=== PATIENT | female | born 1990 ===

== ENCOUNTER 2016-12-23 16:38 | Emergency (ER) | payer MEDICAID ==
[2016-12-23 16:50] VITALS: BP 125/72; PULSE 84; RESP 16; TEMP 98.2; O2SAT 100
--- NOTE | 2016-12-23 17:15 | ED PDOC ---
HPI: Chest Pain Time Seen by Provider: 12/23/16 17:04 Chief Complaint (Nursing): Chest Pain Chief Complaint (Provider): chest pain History Per: Patient Additional Complaint(s): 26-year-old female presents to emergency department with generalized chest and abdominal pain that started 3 days ago. Patient has mild nausea and is not sure if she is . She has slight shortness of breath as well that comes and goes. Patient denies any vaginal bleeding. No associated fever or chills, no coughing. Past Medical History Reviewed: Historical Data, Nursing Documentation, Vital Signs Vital Signs: Last Vital Signs Temp 98.2 F 12/23/16 16:45 Pulse 84 12/23/16 16:45 Resp 16 12/23/16 16:45 BP 125/72 12/23/16 16:45 Pulse Ox 100 12/23/16 19:21 - Medical History PMH: Anemia, Asthma, Gastritis - Surgical History Surgical History: Cholecystectomy, (x2) Other surgeries: gastric bypass, abdominoplasty - Family History Family History: States: No Known Family Hx - Living Arrangements Living Arrangements: With Family - Social History Current smoker - smoking cessation education provided: No Alcohol: None Drugs: Denies - Home Medications Home Medications: Ambulatory Orders Medication Instructions Recorded Doxycycline Hyclate [Doxycycline] 1 tab PO BID #14 tab 06/04/15 Ondansetron [Zofran] 4 mg PO Q6H PRN #10 tab 06/30/15 Ranitidine HCl [Zantac 150] 150 mg PO BID #20 tab 06/30/15 Ondansetron ODT [Zofran ODT] 1 odt PO Q6 PRN #30 odt 09/16/15 Sucralfate [Carafate] 1 gm PO QID PRN #30 tablet 09/16/15 Famotidine [Pepcid] 1 tab PO BID #10 tab 10/08/15 Ondansetron [Zofran] 4 mg PO Q8H PRN #10 tab 10/08/15 Comb No.42/Folic Acid 1 tab PO DAILY #60 tab 12/23/16 [Prena1 Chew] - Allergies Allergies/Adverse Reactions: Allergies Allergy/AdvReac Type Severity Reaction Status Date / Time No Known Allergies Allergy Verified 10/08/15 12:21 BIENVENIDO Risk Score for UA/NSTEMI - BIENVENIDO Risk Score Age > 64: NO 3 or more CAD Risk Factors: NO Known CAD (Stenosis greater than 50%): NO Aspirin use in past 7 days: NO Severe Angina: NO EKG ST changes greater than 0.5mm: NO Positive Cardiac Marker: NO BIENVENIDO Score: 0 Risk %: 5% Curb-65 Severity Score - CURB-65 Severity Score Confusion: No Respiratory Rate greater than/equal to 30: No Systolic BP <90 or Diastolic BP less than/equal 60mmHg: No Age >64: No Curb-65 Score: 0 Percentage 30-day mortality: 0.6% Wells Criteria for PE - Wells Criteria for Pulmonary Embolism Clinical Signs and Symptoms of DVT: No P.E is #1 Diagnosis, or Equally Likely: No Heart Rate >100: No Immobilization at least 3 days;Surgery previous 4 weeks: No Previous, objectively diagnosed PE or DVT: No Hemoptysis: No Malignancy w/treatment within 6 months, or palliative: No Total Score: 0 Review of Systems ROS Statement: Except As Marked, All Systems Reviewed And Found Negative Constitutional: Negative for: Fever Cardiovascular: Positive for: Chest Pain Respiratory: Positive for: Shortness of Breath (intermittent) Gastrointestinal: Positive for: Nausea, Abdominal Pain. Negative for: Vomiting Genitourinary Female: Positive for: Pelvic Pain. Negative for: Dysuria, Vaginal Discharge, Vaginal Bleeding Neurological: Negative for: Headache, Dizziness Physical Exam - Reviewed Nursing Documentation Reviewed: Yes Vital Signs Reviewed: Yes - Physical Exam Appears: Positive for: Well, Non-toxic, No Acute Distress Skin: Negative for: Rash Eye Exam: Positive for: Normal appearance Cardiovascular/Chest: Positive for: Regular Rate, Rhythm Respiratory: Positive for: Normal Breath Sounds. Negative for: Accessory Muscle Use, Wheezing, Respiratory Distress Gastrointestinal/Abdominal: Positive for: Soft. Negative for: Tenderness, Distended, Guarding, Rebound Back: Negative for: L CVA Tenderness, R CVA Tenderness Extremity: Positive for: Normal ROM Neurologic/Psych: Positive for: Alert, Oriented - Laboratory Results Result Diagrams: 12/23/16 18:00 12/23/16 18:00 Urine POC: Positive Urine dip results: Positive for: Leukocyte Esterase (trace) - ECG O2 Sat by Pulse Oximetry: 100 Pulse Ox Interpretation: Normal - Other Rad OB TV US X-Ray: Read By Radiologist X-Ray Interpretation: see below Medical Decision Making Medical Decision Makin26 year old with chest pain and abdominal pain Plan: test - result is positive UA, culture CBC CMP Trop Beta quant OB US PO tylenol IVF US: Findings: The uterus measures approximately 9.8 x 4.7 x 5.7 cm. Anteverted. Cervix length measures approximately 3.8 cm. There is a single intrauterine fetus present. 2 mm yolk sac. The gestational sac measures 2.7 cm and is compatible with a gestational age of 7 weeks 3 days. The crown-rump length measures 0.8 cm and is compatible with a gestational age of 6 weeks 5 days. There is heart motion which measured 121.5 BPM. The right ovary measures 3.5 x 1.8 x 3.5 cm. The left ovary measures 4.1 x 2.3 x 3.7 cm. 1.4 x 1.0 x 1.3 cm probable corpus luteal cyst. Blood flow was demonstrated to both ovaries. Impression: Live single intrauterine with estimated gestational age 7 weeks 3 days by gestational sac calculation and 6 weeks 5 days by crown-rump length calculation. heart rate 121.5 bpm. 1.4 cm probable left corpus luteal cyst. Advise an anomaly screen at 16-18 weeks gestational age. Patient is aware of all diagnostic testing results. She states that chest pain or shortness of breath have resolved completely. Patient was given prescription for vitamins. She was referred to women's clinic for follow-up and she is aware she can return to ED if acutely worse in any time. Disposition - Clinical Impression Clinical Impression: - Patient ED Disposition Is Patient to be Admitted: No Counseled Patient/Family Regarding: Studies Performed, Diagnosis, Need For Followup - Disposition Referrals: [facility] [Outside] Disposition: Routine/Home Disposition Time: 19:08 Condition: STABLE Additional Instructions: Rest as much as possible and drink plenty of fluids. Start taking vitamins. Follow up as soon as possible with [facility]. Prescriptions: Comb No.42/Folic Acid [Prena1 Chew] 1 tab PO DAILY #60 tab Instructions: (ED) Forms: [employer] (E[place]ian) Results - Lab Results Lab Results: 12/23/16 12/23/16 12/23/16 18:00 18:00 17:35 WBC 13.3 H RBC 4.11 Hgb 10.1 L Hct 32.2 L MCV 78.3 L D MCH 24.5 L MCHC 31.3 L RDW 17.1 H Plt Count 346 MPV 8.4 Neut % (Auto) 68.0 Lymph % (Auto) 22.5 [place] % (Auto) 7.4 Eos % (Auto) 1.4 Baso % (Auto) 0.7 Neut # 9.0 H Lymph # 3.0 [place] # 1.0 H Eos # 0.2 Baso # 0.1 Sodium 137 Potassium 4.5 Chloride 106 Carbon Dioxide 23 Anion Gap 13 BUN 15 Creatinine 0.8 Est GFR ( Amer) > 60 Est GFR (Non-Af Amer) > 60 Random Glucose 80 Calcium 9.1 Troponin I < 0.0120 Beta HCG, Quant 63246.00 Urine Color Yellow Urine Clarity Slighty-cloudy Urine pH 6.0 Ur Specific Ralph 1.019 Urine Protein Negative Urine Glucose (UA) Neg Urine Ketones Negative Urine Blood Negative Urine Nitrate Negative Urine Bilirubin Negative Urine Urobilinogen 0.2-1.0 Ur Leukocyte Esterase Trace Urine Microscopic WBC 1 Ur Squamous Epith Cells 5
[2016-12-23] MEDS ORDERED: Sodium Chloride 0.9% 1,000 ML IV STA (17:33)
[2016-12-23 18:16] LABS: BASO # 0.1 K/uL (0.0-0.2); BASO % 0.7 % (0.0-2.0); EOS # 0.2 K/uL (0.0-0.7); EOS % 1.4 % (0.0-4.0); HEMOGLOBIN 10.1 g/dL (12.0-16.0); LYMPH % 22.5 % (20.0-40.0); MEAN CELL VOLUME 78.3 fl (81.0-99.0); MEAN CORPUSCULAR HEMOGLOBIN 24.5 pg (27.0-31.0); MEAN CORPUSCULAR HGB CONC 31.3 g/dL (33.0-37.0); MEAN PLATELET VOLUME 8.4 fl (7.2-11.7); MONO % 7.4 % (0.0-10.0); RBC 4.11 Mil/uL (3.80-5.20); RED CELL DISTRIBUTION WIDTH 17.1 % (11.5-14.5); WHITE BLOOD COUNT 13.3 K/uL (4.8-10.8)
[2016-12-23 18:27] LABS: BLOOD UREA NITROGEN 15 mg/dl (7-17); CALCIUM 9.1 mg/dL (8.4-10.2); GFR AFRICAN-AMERICAN > 60; GFR NON-AFRICAN AMERICAN > 60
--- NOTE | 2016-12-23 19:01 | US ---
Indication: Early , abdominal pain Comparison: No recent relevant studies available for comparison. Technique: Transvaginal pelvic ultrasound Findings: The uterus measures approximately 9.8 x 4.7 x 5.7 cm. Anteverted. Cervix length measures approximately 3.8 cm. There is a single intrauterine fetus present. 2 mm yolk sac. The gestational sac measures 2.7 cm and is compatible with a gestational age of 7 weeks 3 days. The crown-rump length measures 0.8 cm and is compatible with a gestational age of 6 weeks 5 days. There is heart motion which measured 121.5 BPM. The right ovary measures 3.5 x 1.8 x 3.5 cm. The left ovary measures 4.1 x 2.3 x 3.7 cm. 1.4 x 1.0 x 1.3 cm probable corpus luteal cyst. Blood flow was demonstrated to both ovaries. Impression: Live single intrauterine with estimated gestational age 7 weeks 3 days by gestational sac calculation and 6 weeks 5 days by crown-rump length calculation. heart rate 121.5 bpm. 1.4 cm probable left corpus luteal cyst. Advise an anomaly screen at 16-18 weeks gestational age.
[2016-12-23 19:13] LABS: SQUAMOUS EPITHIAL 5 /hpf (0-5); URINE BILIRUBIN NEGATIVE (NEGATIVE); URINE BLOOD NEGATIVE (NEGATIVE); URINE CLARITY SLIGHTY-CLOUDY (Clear); URINE COLOR YELLOW (YELLOW); URINE GLUCOSE (UA) NEG (Normal); URINE LEUKOCYTE ESTERASE TRACE Leu/uL (Negative); URINE NITRATE NEGATIVE (NEGATIVE); URINE PROTEIN NEGATIVE (NEGATIVE); URINE UROBILINOGEN 0.2-1.0 mg/dL (0.2-1.0)
== END 2016-12-23 19:46 | disposition home or self-care (01) ==
LOC: H.ER 16:38
DX: O26.892 Other specified pregnancy related conditions, second trimester (principal); O34.82 Maternal care for other abnormalities of pelvic organs, second trimester

== ENCOUNTER 2017-01-01 15:59 | Observation (INO) | payer MEDICAID ==
[2017-01-01 16:07] VITALS: BP 114/60; PULSE 94; RESP 20; TEMP 98.1; O2SAT 98
--- NOTE | 2017-01-01 17:08 | ED PDOC ---
HPI: General Adult Time Seen by Provider: 01/01/17 16:11 Chief Complaint (Nursing): Female Genitourinary History Per: Patient Additional Complaint(s): Pt. states for the past 2 days she's had pelvic pain and vaginal spotting. Pt. states she is currently 8 weeks . Reports that she's only had to use 1 pad to control the bleeding. Of note, pt. has not had any care yet. Denies hematuria, dysuria, vaginal discharge, back pain, hx of ectopic . . Past Medical History Reviewed: Historical Data, Nursing Documentation, Vital Signs Vital Signs: Last Vital Signs Temp 98.1 F 01/01/17 16:05 Pulse 94 H 01/01/17 16:05 Resp 20 01/01/17 16:05 BP 114/60 01/01/17 16:05 Pulse Ox 98 01/01/17 17:10 - Medical History PMH: Anemia, Asthma, Gastritis - Surgical History Surgical History: Cholecystectomy, (x2) - Family History Family History: States: No Known Family Hx - Immunization History Hx Tetanus Toxoid Vaccination: No Hx Influenza Vaccination: No Hx Pneumococcal Vaccination: No - Home Medications Home Medications: Ambulatory Orders Medication Instructions Recorded Doxycycline Hyclate [Doxycycline] 1 tab PO BID #14 tab 06/04/15 Ondansetron [Zofran] 4 mg PO Q6H PRN #10 tab 06/30/15 Ranitidine HCl [Zantac 150] 150 mg PO BID #20 tab 06/30/15 Ondansetron ODT [Zofran ODT] 1 odt PO Q6 PRN #30 odt 09/16/15 Sucralfate [Carafate] 1 gm PO QID PRN #30 tablet 09/16/15 Famotidine [Pepcid] 1 tab PO BID #10 tab 10/08/15 Ondansetron [Zofran] 4 mg PO Q8H PRN #10 tab 10/08/15 Comb No.42/Folic Acid 1 tab PO DAILY #60 tab 12/23/16 [Prena1 Chew] - Allergies Allergies/Adverse Reactions: Allergies Allergy/AdvReac Type Severity Reaction Status Date / Time No Known Allergies Allergy Verified 01/01/17 16:04 Review of Systems ROS Statement: Except As Marked, All Systems Reviewed And Found Negative Genitourinary Female: Positive for: Vaginal Bleeding, Pelvic Pain Physical Exam - Physical Exam Appears: Positive for: Well, Non-toxic, No Acute Distress Skin: Positive for: Normal Color, Warm. Negative for: Rash Eye Exam: Positive for: Normal appearance Cardiovascular/Chest: Positive for: Regular Rate, Rhythm Respiratory: Positive for: CNT, Normal Breath Sounds Gastrointestinal/Abdominal: Positive for: Normal Exam, Bowel Sounds, Soft. Negative for: Tenderness Back: Positive for: Normal Inspection Extremity: Positive for: Normal ROM Neurologic/Psych: Positive for: Alert, Oriented - Laboratory Results Result Diagrams: 01/01/17 17:20 01/01/17 17:20 - ECG O2 Sat by Pulse Oximetry: 98 - Progress ED Course And Treament: Labs ordered. OB US ordered. Disposition - Clinical Impression Clinical Impression: Urinary tract infection, Pelvic pain - Patient ED Disposition Is Patient to be Admitted: Transfer of Care (Signed out to Sharad MENCHACA pending US results and final disposition.) - Disposition Disposition Time: 20:00 Condition: STABLE
[2017-01-01 17:27] LABS: BASO # 0.1 K/uL (0.0-0.2); BASO % 0.5 % (0.0-2.0); EOS # 0.2 K/uL (0.0-0.7); EOS % 1.4 % (0.0-4.0); HEMOGLOBIN 9.9 g/dL (12.0-16.0); LYMPH # 2.7 K/uL (1.0-4.3); LYMPH % 20.2 % (20.0-40.0); MEAN CELL VOLUME 78.1 fl (81.0-99.0); MEAN CORPUSCULAR HEMOGLOBIN 24.8 pg (27.0-31.0); MEAN CORPUSCULAR HGB CONC 31.7 g/dL (33.0-37.0); MEAN PLATELET VOLUME 8.8 fl (7.2-11.7); MONO % 7.1 % (0.0-10.0); NEUT # 9.6 K/uL (1.8-7.0); NEUT % 70.8 % (50.0-75.0); RBC 4.02 Mil/uL (3.80-5.20); RED CELL DISTRIBUTION WIDTH 16.9 % (11.5-14.5); WHITE BLOOD COUNT 13.6 K/uL (4.8-10.8)
[2017-01-01 17:38] LABS: SQUAMOUS EPITHIAL 5 /hpf (0-5); URINE BACTERIA RARE (<OCC); URINE BILIRUBIN NEGATIVE (NEGATIVE); URINE BLOOD MODERATE (NEGATIVE); URINE CLARITY CLOUDY (Clear); URINE COLOR STRAW (YELLOW); URINE GLUCOSE (UA) NEG (Normal); URINE LEUKOCYTE ESTERASE LARGE Leu/uL (Negative); URINE NITRATE NEGATIVE (NEGATIVE); URINE PROTEIN NEGATIVE (NEGATIVE); URINE UROBILINOGEN 0.2-1.0 mg/dL (0.2-1.0)
[2017-01-01 18:34] LABS: ALB/GLOB RATIO 1.2 (1.0-2.1); ALT/SGPT 24 U/L (9-52); AST/SGOT 26 U/L (14-36); BLOOD UREA NITROGEN 11 mg/dl (7-17); CALCIUM 9.4 mg/dL (8.4-10.2); GFR AFRICAN-AMERICAN > 60; GFR NON-AFRICAN AMERICAN > 60
--- NOTE | 2017-01-01 20:24 | ED PDOC ---
- Laboratory Results Result Diagrams: 01/01/17 17:20 01/01/17 17:20 - ECG O2 Sat by Pulse Oximetry: 98 - Progress ED Course And Treament: PELVIC US: FINDINGS: Gestation: There is a single live intrauterine gestation. Gestational sac has mean diameter approximately 35.4 mm.A yolk sac is present, internal diameter measures approximately 2 mm. [place] rump length measures approximately 16.5 mm. There is embryonic heart rate of 161 beats per minute. . Uterus: Uterus measures approximately 10.7 x 6 x 6.5 cm. Ovaries: Right ovary measures approximately 2.72 x 1.83 x 2.68 cm. Left ovary measures approximately 4.28 x 2.29 x 4 cm. There is a corpus luteum in the left ovary.There is flow in both ovaries on Doppler imaging. Free fluid: There is no free fluid. IMPRESSION: 8 week 3 day single living intrauterine gestation, estimated date of delivery 08/10/17 Disposition - Clinical Impression Clinical Impression: Urinary tract infection, Pelvic pain - POA Present On Arrival: None - Disposition Disposition: Routine/Home Disposition Time: 21:10 Condition: STABLE
--- NOTE | 2017-01-01 20:25 | US ---
EXAM: US First Trimester, Transabdominal CLINICAL HISTORY: 26 years old, female; Pain; complicated by abdominal or pelvic pain; Left lower quadrant; First trimester; Gestational age or lmp: 7.17; ; Prior surgery; Surgery date: 6+ months; Surgery type: Tummy tuck; Additional info: Pelvic pain, vaginal spotting TECHNIQUE: Real-time transabdominal obstetrical ultrasound of the maternal pelvis and a first trimester with image documentation. EXAM DATE/TIME: 01/01/2017 4:56 PM COMPARISON: CT - ABD PELVIS PO IV CONTRAST 06/30/2015 2:05:12 PM FINDINGS: Gestation: There is a single live intrauterine gestation. Gestational sac has mean diameter approximately 35.4 mm.A yolk sac is present, internal diameter measures approximately 2 mm. [place] rump length measures approximately 16.5 mm. There is embryonic heart rate of 161 beats per minute. . Uterus: Uterus measures approximately 10.7 x 6 x 6.5 cm. Ovaries: Right ovary measures approximately 2.72 x 1.83 x 2.68 cm. Left ovary measures approximately 4.28 x 2.29 x 4 cm. There is a corpus luteum in the left ovary.There is flow in both ovaries on Doppler imaging. Free fluid: There is no free fluid. IMPRESSION: 8 week 3 day single living intrauterine gestation, estimated date of delivery 08/10/17
== END 2017-01-01 21:10 | disposition home or self-care (01) ==
LOC: H.ER 15:59 → H.EROBSV 16:56
PROVIDERS: ADMIT Emergency Medicine; ATTEND Emergency Medicine
DX: O23.41 Unspecified infection of urinary tract in pregnancy, first trimester (principal); J45.909 Unspecified asthma, uncomplicated; O09.31 Supervision of pregnancy with insufficient antenatal care, first trimester; O99.511 Diseases of the respiratory system complicating pregnancy, first trimester; Z3A.08 8 weeks gestation of pregnancy